=== PATIENT | male | born 1985 | race Caucasian/White ===

== ENCOUNTER 2018-08-02 14:10 | Day surgery (SDC) | payer OTHER ==
[2018-08-02] VITALS (9 sets, daily range): BP systolic 123–147; BP diastolic 71–107; PULSE 53–100; TEMP 97.4–98.2
[~2018-08-02] VITALS: Ht 182.9 cm; Wt 93.4 kg
[2018-08-02] MEDS ORDERED: ZOLOFT 100MG100 MG PO (14:31)
[2018-08-02] MEDS ORDERED: ATARAX 25MG25 MG/TAB PO (14:32)
[2018-08-02] MEDS ORDERED: ABILIFY2 MG PO (14:32)
[2018-08-02] MEDS ORDERED: REVIA 50MG TABL50 MG PO (14:33)
[2018-08-02] MEDS ORDERED: MOTRIN 600600 MG/TAB PO (17:45)
[2018-08-02] MEDS ORDERED: COLACE 100100 MG/CAP PO (17:45)
[2018-08-02] MEDS ORDERED: NORCO 325 MG-51 TAB PO (17:47)
[2018-08-02] MEDS ORDERED: AMOXICILLIN 8751 TAB PO (17:48)
--- NOTE | 2018-08-02 22:00 | NUR ---
PT WAS ABLE TO EAT, DRINK, VOID AND AMBULATE WITHOUT ISSUE. PT REQUESTED SOMETHING FOR HEARTBURN. MED WAS ADMINITERED. NO NOTED N/V. PT DENIES PAIN AND/OR NEED FOR PAIN MEDICATION. PT IV WAS REMOVED. PT EDUCATION WAS GIVEN AND PAPERS WHERE SIGNED. NO ISSUES OR CONSERNS VOICED. PT DENIED NEED FOR STAFF TO ASSIST OUT OF FACILITY.
== END 2018-08-02 22:30 | disposition home or self-care (01) ==
LOC: SDCO 14:10 → EDSEX 14:10 → SURG 18:07 → SDCO 22:30
DX: K35.33 Acute appendicitis with perforation, localized peritonitis, and gangrene, with abscess (principal); F41.9 Anxiety disorder, unspecified; F32.9 Major depressive disorder, single episode, unspecified; Z79.899 Other long term (current) drug therapy
CPT/HCPCS: OP; J2543; J2704; J3010; J7120; Q9967